=== PATIENT | female | born 1960 | race Caucasian/White ===

== ENCOUNTER 2018-05-26 10:43 | Observation (INO) | payer BC ==
[2018-05-26] MEDS ORDERED: NS 0.9% 1000 ML** 1,000 ML IV ONE (10:45)
[2018-05-26] MEDS ORDERED: Alteplase* 100 MG VIAL ONE (10:51)
--- NOTE | 2018-05-26 10:52 | ED ---
Neurological HPI - HPI Summary HPI Summary: CODE CASTLE overhead at 10:39 This pt is a 57 y/o female presenting to [facility] via EMS for sudden onset of headache and right sided numbness today. EMS reports the pt woke up with a headache at 07:00 today. Pt went to work as usual and at 08:20 she noted visual disturbance while looking at her monitor. EMS states her headache became worse and pt took 2 Aleve. Pt feels like she has "novocaine" on the right side of her face. Additionally pt states she feels like she can't concentrate and is nauseous. EMS notes pt's right sided facial droop currently is more noticeable than when EMS was on scene. EMS denies noticing slurred speech. Pt is not anticoagulated. She only takes levothyroxine. Denies any PMHx. Denies tobacco or alcohol use. - History of Current Complaint Stated Complaint: CODE ARAIZA Time Seen by Provider: 05/26/18 10:45 Hx Obtained From: Patient, EMS Onset/Duration: Sudden Onset, Started hours ago, Still Present Timing: Sudden Onset Neurological Deficit Location: Facial Character: Numbness/Tingling - numbness on right side of face, Visual Changes, Other: - headache Aggravating: Nothing Alleviating: Nothing Associated Signs and Symptoms: Positive: Visual Changes, Headache, Numbness - right side of face, Nausea/Vomiting - Nausea. Negative: Fever - Allergy/Home Medications Allergies/Adverse Reactions: Allergies Allergy/AdvReac Type Severity Reaction Status Date / Time wheat Allergy Nausea Verified 05/26/18 16:19 Home Medications: Home Medications Levothyroxine TAB* [Synthroid TAB*] 25 mcg PO DAILY 05/26/18 [History Confirmed 05/26/18] PMH/Surg Hx/FS Hx/Imm Hx Endocrine/Hematology History: Reports: Hx Thyroid Disease Denies: Hx Diabetes Cardiovascular History: Denies: Hx Hypertension Musculoskeletal History: Reports: Hx Scoliosis - Cancer History Hx Chemotherapy: No Hx Radiation Therapy: No - Surgical History Surgery Procedure, Year, and Place: hysterectomy-1987 breast red. 1988 - Family History Known Family History: Negative: Cardiac Disease - Social History Alcohol Use: None Substance Use Type: Reports: None Smoking Status (MU): Never Smoked Tobacco Review of Systems Negative: Fever Eyes: Other - POS: visual disturbance Positive: Nausea Neurological: Other - POS: unable to concentrate, right sided facial droop Positive: Headache, Numbness - on R sided face. Negative: Slurred Speech All Other Systems Reviewed And Are Negative: Yes Physical Exam - Summary Physical Exam Summary: Appearance: Well-appearing, Well-nourished, lying in bed comfortably Skin: Warm, dry, no obvious rash Eyes: sclera anicteric, no conjunctival pallor ENT: mucous membranes moist, pharynx appears normal Neck: Supple, nontender Respiratory: Clear to auscultation, no signs of respiratory distress Cardiovascular: Normal S1, S2. No murmurs. Normal distal pulses in tibial and radial bilaterally. Abdomen: Soft, nontender, normal active bowel sounds present Musculoskeletal: Normal, Strength/ROM Intact, Motor function in all 4 extremities is normal and symmetric. There is no rigidity or tremor noted. Neurological: A&Ox3, awake and alert, mentation is normal, speech is fluent and appropriate, Level of consciousness nml. The patient is alert and oriented. Cranial nerves with right sided facial palsy of a central type. Motor: weakness of right arm and right leg. She is able to lift both right arm and right leg off the stretcher but there's drift, but neither right arm or right leg fall to the bed. There's asymmetry to light touch sensation on face, arm and leg, with the right being diminished. No visual field loss. No hemineglect. NIH score is 6. Psychiatric: affect is normal, does not appear anxious or depressed Triage Information Reviewed: Yes Vital Signs On Initial Exam: Initial Vitals Temp Pulse Resp BP Pulse Ox 98.3 F 72 16 146/78 95 05/26/18 10:53 05/26/18 10:53 05/26/18 10:53 05/26/18 10:53 05/26/18 10:53 Vital Signs Reviewed: Yes - [place] Coma Scale Best Eye Response: 4 - Spontaneous Best Motor Response: 6 - Obeys Commands Best Verbal Response: 5 - Oriented Coma Scale Total: 15 Diagnostics - Laboratory Result Diagrams: 05/27/18 06:45 05/27/18 06:45 Lab Statement: Any lab studies that have been ordered have been reviewed, and results considered in the medical decision making process. - Radiology Chest XR Radiology Interpretation Completed By: Radiologist Summary of Radiographic Findings: IMPRESSION: No active cardiopulmonary disease. Dr. Crocker has reviewed this report. - CT Brain CT CT Interpretation Completed By: Radiologist Summary of CT Findings: IMPRESSION: No acute intracranial pathology. Preliminary findings were discussed with Dr. Crocker in the Emergency Department at approximately 10:58 AM on 2018. CTA Head/Neck CT Interpretation Completed By: Radiologist Summary of CT Findings: IMPRESSION: 1. No internal carotid artery stenosis by nascet criteria. 2. No aneurysm, vascular malformation, occlusion, or stenosis of the visualized intracranial circulation. Dr. Crocker has reviewed this report. - EKG 11:04 Cardiac Rate: NL - at 76 bpm EKG Rhythm: Sinus Rhythm Summary of EKG Findings: NSR at 76 BPM, P waves, QRS complex, and T waves are within normal limits, T waves and intervals are normal, no ischemic changes. This is a normal EKG Re-Evaluation - Re-Evaluation First Eval Re-Evaluation Time: 10:58 Comment: Dr. Rasmussen, neurologist, at bedside. Course/Dx - Course Course Of Treatment: Maugi Castle called at 10:39. Dr. Crocker to pt at door at 10: 44. Pt to CT at 10:45. Dr. Crocker orders brain CT at 10:46. Pt returned from CT at 10:52. CT reading over the phone provided by Dr. Howard at 10:57. Dr. Rasmussen , neurologist, in to see pt at 10:58. Pt is TPA candidate and TPA ordered at 11: 06. CTA ordered at 11:06. TPA administered at 11:08. Assessment/Plan: Pt is a 57 y/o female presenting to [facility] via EMS for sudden onset of headache and right sided numbness today. EMS reports the pt woke up with a headache at 07:00 today. Magui castle called at 10:39. NIH score is 6. GCS is 15. Brain CT is negative for an intracranial pathology. Dr. Rasmussen reports pt is candidate for TPA. CTA head/neck ordered. TPA was administered. CTA shows 1. No internal carotid artery stenosis by nascet criteria. 2. No aneurysm, vascular malformation, occlusion, or stenosis of the visualized intracranial circulation. Discussed case with Dr. Cabrales, hospitalist, who accepted pt for admission. - Diagnoses Provider Diagnoses: CVA (cerebral vascular accident) During the Visit The Following Alert/Code Occurred: Magui Castle - at 10:39 - Physician Notifications Discussed Care Of Patient With: José Manuel Cabrales - hospitalist Time Discussed With Above Provider: 12:38 Instructed by Provider To: Admit As Inpatient - Critical Care Time Critical Care Time: 30-74 min - Acute stroke symptoms, neurology consult, TPA administration, frequent neurologic rechecks. Discharge - Sign-Out/Discharge Documenting (check all that apply): Patient Departure [place] [facility] [place] Received Moderate/Deep Sedation with Procedure: No - Discharge Plan Condition: Stable Disposition: ADMITTED TO [facility] - Billing Disposition and Condition Condition: STABLE Disposition: Admitted to [facility] - Attestation Statements Document Initiated by Scribe: Yes Documenting Scribe: Lindsey Ellis Provider For Whom Scribe is Documenting (Include Credential): Solomon Crocker MD Scribe Attestation: Lindsey Lima scrkirstened for Solomon Crocker MD on 05/27/18 at 1235. Scribe Documentation Reviewed: Yes Provider Attestation: The documentation as recorded by the Lindsey daly accurately reflects the service I personally performed and the decisions made by me, Solomon Crocker MD Status of Scribe Document: Viewed
[2018-05-26] MEDS ORDERED: Alteplase* 100 MG VIAL IV ONE ×2 (11:06)
[2018-05-26] MEDS ORDERED: PROCHLORPERAZINE INJ 5 MG/ML 2 ML VIAL IV ONE (11:16)
[2018-05-26 11:23] LABS: ABS Basophils 0.1 10^3/ul (0-0.2); ABS Eosinophils 0.2 10^3/ul (0-0.6); ABS Lymphocytes 1.9 10^3/ul (1.0-4.8); ABS Monocytes 0.4 10^3/ul (0-0.8); ABS Neutrophils 3.1 10^3/ul (1.5-7.7); ABS Nucleated RBC 0 10^3/ul; Eosinophil % 2.7 %; Hematocrit 42 % (35-47); Lymphocyte % 33.6 %; Mean Corpuscular HGB Conc 34 g/dl (31-36); Mean Corpuscular Hemoglobin 31 pg (27-31); Mean Corpuscular Volume 91 fL (80-97); Nucleated Red Blood Cells % 0; Platelet Count 238 10^3/ul (150-450); Red Blood Count 4.58 10^6/ul (4.00-5.40); Red Cell Distribution Width 14 % (10.5-15); White Blood Count 5.6 10^3/ul (3.5-10.8)
[2018-05-26] MEDS ORDERED: Iodixanol* (CONTRAST) 320 MG/ML 100 ML SDV IV ONE (11:23)
[2018-05-26 11:31] LABS: INR 0.93 (0.77-1.02)
[2018-05-26 11:42] LABS: ALT 28 U/L (7-52); Albumin 4.5 g/dL (3.2-5.2); Albumin/Globulin Ratio 1.6 (1-3); Alkaline Phosphatase 93 U/L (34-104); BUN/Creatinine Ratio 19.7 (8-20); Blood Urea Nitrogen 13 mg/dL (6-24); CO2 Carbon Dioxide 25 mmol/L (22-32); Calcium 9.5 mg/dL (8.6-10.3); Chloride 106 mmol/L (101-111); Cholesterol 230 mg/dL; EGFR African American 111.7 (>60); EGFR Non-African American 92.3 (>60); Globulin 2.9 g/dL (2-4); Glucose 93 mg/dL (70-100); HDL Cholesterol 56.8 mg/dL; LDL Cholesterol 152 mg/dL; Sodium 139 mmol/L (135-145); Total Protein 7.4 g/dL (6.4-8.9); Triglycerides 104 mg/dL
[2018-05-26 11:44] LABS: Anion Gap 8 mmol/L (2-11)
[2018-05-26 12:37] LABS: Urine Appearance Clear; Urine Bacteria Absent (Absent); Urine Bilirubin Negative (Negative); Urine Blood 1+ (Negative); Urine Color Straw; Urine Glucose Negative (Negative); Urine Ketones Negative (Negative); Urine Nitrite Negative (Negative); Urine Protein Negative (Negative); Urine Red Blood Cell Trace(0-2/hpf) (Absent); Urine Specific Gravity 1.009 (1.010-1.030); Urine Squamous Epithelial Cell Present (Absent); Urine Urobilinogen Negative (Negative); Urine White Blood Cell Trace(0-5/hpf) (Absent)
--- NOTE | 2018-05-26 12:39 | CONS ---
NEUROLOGY CONSULTATION NOTE: DATE OF CONSULT: 05/26/18 REFERRING PHYSICIAN: Dr. Crocker. LOCATION: She is in the emergency room. CHIEF COMPLAINT: Numbness, visual loss, headache. HISTORY OF PRESENT ILLNESS: Kelsey Kendall is a 57-year-old right-handed woman who awoke this morning with a bad headache. She normally does not get headaches. She went to work as she was under some time pressure for work that needed to be done. While at work, she developed loss of vision in her right eye only. It seemed like wavy lines were obscuring her vision. She subsequently noticed numbness of the right face, including the right side of the mouth and gums and then the right hand and right foot. She ultimately presented to the hospital. A anshul cabrera was called and I was asked to see her. At my evaluation 4 hours after 7 a.m. when she awoke with the headache and less than 4 hours after onset of the visual and sensory symptoms, she reported decreased vision out of the right eye and numbness of the right face and hand. She felt like her right leg and arm were weak. Dr. Crocker advised her when he first evaluated her, she had central pattern right facial weakness as well as right arm and leg weakness. She denies any prior history of migraine headaches. There is no history of transient ischemic attacks, strokes, diabetes, hypertension, or anticoagulant use. There is no recent history of trauma or surgery. There is no history of bleeding disorders. PAST MEDICAL HISTORY: Her past medical history is notable for gastritis, hiatal hernia. She has a history of hypothyroidism and endometriosis. MEDICATIONS AT HOME: Consist of thyroid replacement. ALLERGIES: According to computer records, she does not have any drug allergies. REVIEW OF SYSTEMS: Negative for recent abdominal pain, trauma, bleeding, prior history of headaches. She is a nonsmoker, does not drink alcohol. She works in a [employer] office. PHYSICAL EXAM: She is well nourished and well hydrated. Blood pressure is 138/ 80, heart rate in the 90s and regular, respiratory rate about 16. Going straight to the neurological exam, with initial assessment, pupils are equal at about 3 mm. Eye movements are normal. Visual jacobs are full to confrontation. Visual acuity out of the left eye seems normal to the patient and out of the right eye seems diffusely blurry. There is no hemianopia, however. Facial musculature is symmetric to my exam. Facial sensation to light touch is reported as diminished on the right side to the left to cotton, but perceptible. Speech is clear without dysarthria. On motor exam, she has antigravity strength in all limbs. She lifts the right arm up and it is tremulous, but there is no drift. With the right leg, she is able to hold it up, but only about 8 inches off the bed, but she holds it there without drift. There is no drift on the left side at all. [id number] maneuver is normal on the left, but she has an IV in her right antecubital area. Finger taps are normal in the right hand, however. Sensory exam is reported as diminished, but perceptible to light touch in the right hand relative to the left and in the right foot relative to the left. She is completely alert and oriented with fluent language. She is able to provide the date and her date. She follows commands without deficit. Her NIH stroke scale is 3 with 1 for partial hemianopia, 1 point for right leg motor, 1 point for sensory. There is no laboratory data other than her CAT scan of the brain without contrast, which was reviewed personally. This was interpreted by radiologist Dr. Howard as normal and I reviewed and I agree. IMPRESSION: Possible cerebrovascular accident. The monocular visual changes are suggestive of a migrainous phenomena, but she has no history of migraine. She does not have any contraindications to tPA and she is within the 4-1/2-hour window. I discussed the risks and benefits of tPA quoting a 6% risk of serious hemorrhage including fatal brain hemorrhage, a 20% to 30% benefit in terms of ischemic stroke outcomes. After answering questions, the patient agreed to consent to tPA infusion; tPA was started at about 4 hours and 5 minutes after awakening and somewhat under 3 hours after onset of visual and sensory symptoms. We will send her for CT angiogram next. If she has a large-vessel occlusion, I will discuss her case with the [facility]'s stroke team. If she does not have a large-vessel occlusion, we will admit her with plans for MRI scans and post tPA and possible stroke workup. I would also consider giving her intravenous magnesium if the CT angiogram is negative for possible migrainous mechanism behind her neurological symptoms and deficits. I will continue to follow her along and have discussed the case with Dr. Crocker, who is working concurrently with me. [id number]/[facility] #: [id number] JOVANNA
[2018-05-26 12:50] LABS: Potassium Redraw 3.5 mmol/L (3.5-5.0)
--- NOTE | 2018-05-26 12:50 | CONS ---
NEUROLOGY CONSULTATION: ADDENDUM: DATE OF CONSULT: 05/26/18 LOCATION: She is in the emergency room, to be admitted to the intensive care unit. REFERRING PROVIDER: Dr. Crocker. INTERVAL HISTORY: Since earlier note, Kelsey's visual symptoms have resolved. She still feels like her right side is somewhat numb. Her headache is now a dull ache. She has received tPA and the infusion was recently finished. She had a CT angiogram of the brain interpreted as normal by Dr. Howard. I reviewed the images and I agree. Her laboratory studies are back and she has a normal CBC, normal chemistry profile, although the potassium and AST were not able to be evaluated. Her cholesterol is 230 and LDL is 152 and these are nonfasting. Her glucose is 93. INR is normal at 0.93 and PTT at 20.0. Her EKG looks normal and she is in sinus rhythm. PHYSICAL EXAM: Her blood pressure remains about 140/70. Heart rate is in the 70s and appears sinus on the monitor. On repeat neurological exam, facial musculature is symmetric. Pupils are equal and respond to light from 3 down to 2.5 mm. Eye movements are normal and visual jacobs are full to confrontation. Funduscopic exam is normal bilaterally. Facial sensation is still felt to be less on the right side than the left to pin discrimination. Pin discrimination in the right arm and right leg is also felt to be less than the left side. Strength seems normal in the right arm and left arm without any drift. She has good strength in the left arm and she is able to raise the right leg up and hold it off the bed. She is alert and conversant. Memory is intact and language is fluent. IMPRESSION AND PLAN: Impression is that of a possible cerebrovascular event. Her CT angiogram does not show a large-vessel occlusion. Her lipids are not in an optimal range, although there is no evidence of atherosclerotic disease on her CT angiogram. She will probably need to be started on a statin, but I would first check a fasting lipid profile tomorrow morning. She will be admitted to the intensive care unit. I have put in orders for an MRI scan of the brain without contrast and a CT scan of the brain without contrast 24 hours after her tPA infusion. I have also ordered a transthoracic echocardiogram with a bubble study and a hemoglobin A1c. I will continue to follow her along. I have updated Kelsey and her family on the results of her studies. [id number]/[facility] #: [id number] JOVANNA
[2018-05-26] MEDS ORDERED: Ondansetron INJ* 2 MG/ML VIAL IV PRN (13:02)
[2018-05-26] MEDS ORDERED: Acetaminophen TAB* 325 MG PO PRN (13:02)
[2018-05-26 14:06] LABS: TSH (Thyroid Stimulating Horm) 1.11 mcIU/mL (0.34-5.60)
--- NOTE | 2018-05-26 14:54 | HP ---
CC: Dr. Saurabh Medellin; Dr. Eloy Rasmussen * ADMISSION HISTORY AND PHYSICAL: DATE OF ADMISSION: 05/26/18 PRIMARY CARE PROVIDER: Dr. Saurabh Medellin. MY ATTENDING WHILE IN THE HOSPITAL: Dr. José Manuel Cabrales.* (DICTATED BY DELVIN GREENBERG) CHIEF COMPLAINT: Right-sided numbness and weakness, headache. HISTORY OF PRESENT ILLNESS: Ms. Kendall is a 57-year-old female with past medical history significant only for hypothyroidism, gastritis due to hiatal hernia, who presents to the emergency department after approximately 7 a.m. on day of her admission she developed sudden onset of right-sided headache with right-sided facial numbness and right-sided weakness. The patient states she took Aleve which has not changed her symptoms, so she came to the emergency department. The patient in the emergency department had persistent symptoms with reported right-sided facial droop, right-sided headache, right-sided weakness. The patient had a CT of her head which was unremarkable, and given the patient had no contraindication to tPA, it was given. The patient had immediate relief of her headache and her vision problems improved. The patient described the changes in her vision as waviness and difficulty focusing with inability to read. The patient has not had any other recent illnesses, recent changes to her medications. The patient did not have vertigo or nausea. The patient's vital signs were within normal limits. The patient was stable in the emergency department. The patient has no previous history of AFib, but does state that she feels like her heart is pounding in her chest occasionally and recently had her Synthroid decreased due to this. The patient denies chest pain , shortness of breath, nausea, vomiting, dysuria, abdominal pain, diarrhea, or other symptoms. The patient was in her normal state of health. The patient was exposed to the flu from both her and daughter, but not contracted herself. We were asked to evaluate the patient for admission due to concern for CVA. PAST MEDICAL HISTORY: Hypothyroidism, gastritis, hiatal hernia, endometriosis. PAST SURGICAL HISTORY: EGD x2. MEDICATIONS: Levothyroxine 25 mcg p.o. daily. ALLERGIES: No known drug allergies. FAMILY HISTORY: The patient's father has diabetes, heart disease, thyroid disease, but is still alive. The patient's mother has a brain aneurysm which is being managed conservatively and no other health problems. The patient has 2 sisters who are healthy. SOCIAL HISTORY: The patient has never smoked. Drinks occasional alcohol. Has never used illicit drugs. 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 The patient is and has 2 children. The patient's surrogate decision maker will be her , [place]. REVIEW OF SYSTEMS: A 14-point review of systems was reviewed and is negative except as above in the HPI. PHYSICAL EXAMINATION GENERAL: The patient is a 57-year-old female who appears stated age, sitting comfortably in bed, in no acute distress. HEENT: Head: Normocephalic, atraumatic. Sclerae anicteric. No conjunctival injection. Nasal mucosa moist. Oral mucosa moist. No pharyngeal erythema, discharge, or exudate. NECK: Supple, nontender. No lymphadenopathy. No carotid bruits auscultated. No JVD. RESPIRATORY: Clear to auscultation bilaterally. No wheezes, rales, or rhonchi. Good air exchange bilaterally. CARDIAC: Regular rate and rhythm. No clicks, murmurs, gallops, or rubs. Pulses are 2+ in the bilateral dorsalis pedis, posterior tibialis, and radial areas. ABDOMEN: Soft, nontender, nondistended. Bowel sounds present and normoactive in all 4 quadrants. No hepatosplenomegaly. No abdominal bruits auscultated. No hepatojugular reflux. GENITOURINARY: No suprapubic or CVA tenderness. NEURO: The patient has diminished sensation to light touch, cold, and pinprick on the right side of her face. The patient has no nystagmus. Pupils are equal , round, and reactive to light. Palate elevates symmetrically. No facial asymmetry. The patient has weakness of 4-/5 on her right side in the upper and lower extremities distally and proximally. Normal sensation to light touch in the upper and lower extremities distally and proximally. Reflexes unremarkable. Babinski is downgoing bilaterally. PSYCHIATRIC: Very pleasant and cooperative. SKIN: Clean, dry, and intact. No rash. LABORATORY DATA: White blood cell count of 5.6, hemoglobin 14.0, platelet count 238. INR 0.93, aPTT 28.0. Sodium 139, potassium not processed, chloride 106, carbon dioxide 25, anion gap 8, BUN 13, creatinine 0.66, glucose 93, lactic acid 1.3, calcium 9.5. Bilirubin 0.5, AST not processed, ALT 25, alkaline phosphatase 93. Troponin I of 0.00. Total protein 7.4, albumin 4.5, globulin 2.9. Triglycerides 104, cholesterol 230, LDL cholesterol 152, HDL cholesterol 56.8. Urine shows 1+ blood, otherwise unremarkable. IMPRESSION AND PLAN: Ms. Kendall is a 57-year-old female with past medical history significant for hypothyroidism and hiatal hernia with gastritis who presents to the emergency department with sudden onset right-sided neurologic symptoms. The patient received tPA in the emergency department and will be admitted to the hospital for close observation and post-tPA care. 1. Likely cerebrovascular accident. The patient likely had a cerebrovascular accident that was thrombotic in nature for which the patient received tPA, but has residual deficits. The patient will be monitored closely in the ICU with bleeding precautions post-tPA protocol including a CT of her brain at 24 hours. The patient will have an MRI and echocardiogram. Given the patient's history overtreated hypothyroidism, we will recheck a TSH and the patient will likely need long-term cardiac monitoring. Given the patient's headache, this could also be a migraine mimic such as complicated migraine with aura; however, this is less likely given the patient's lack of history of migraine, her age and other risk factors. We will have moderate permissive hypertension. The patient has no other significant concerns. The patient will have hemoglobin A1c and repeat lipid profile drawn in the morning and will be treated with statins at that time if needed. The patient will have dual antiplatelet therapy when cleared by Neurology after bleeding concerns with tPA have diminished. 2. Hypothyroidism. Continue the patient's levothyroxine and check TSH as above. 3. DVT prophylaxis: SCDs in the setting of tPA. The patient is low risk except for a recent stroke. 4. Code status: The patient would like to be a full code. 5. FEN: The patient will have a heart-healthy diet without caffeine. The patient does not need fluids at this time. 6. Disposition: The patient is admitted to the ICU. TIME SPENT: Approximately 60 minutes was spent on the admission of this patient , 30 of which was spent [id number] with the patient obtaining history and physical and discussing treatment plan. Plan was discussed with my attending, Dr. José Manuel Cabrales, and he is in agreement. DELVIN GREENBERG [id number]/[facility] #: [id number] JOVANNA
[2018-05-26] MEDS ORDERED: Perflutren Lipid Microsphere* 3 ML VIAL ONE (15:45)
[2018-05-26] MEDS: Pantoprazole TAB * 40 MG TAB PO SCH (15:58)
[2018-05-26] MEDS: Levothyroxine TAB* 25 MCG TAB PO SCH (15:59)
--- NOTE | 2018-05-26 17:27 | ECHO ---
Patient: ALMAS ABREU [facility] Rec#: [id number] : 1960 Date: 05/26/2018 Age: 57y Height: 160 cm / 63.0 in Weight: 79.1 kg / 174.3 lbs Sex: F BSA: 1.8 Room#: ICU 2 Admit Date#: 05/26/2018 Type: Inpatient Referring: Eloy Rasmussen MD Reading: Desire Brown MD Concrete Batcher: Rupa Galeas RN RDCS CC: Saurabh Medellin MD Transthoracic Echocardiogram Indication: CVA S/P tPA BP: 144/91 HR: 63 Rhythm: NSR with PACs Findings History: Thyroid disease, scoliosis, hiatal hernia Technical Comments: The study is technically limited due to poor acoustic windows. Left Ventricle: The left ventricular chamber size is normal. Septal wall hypertrophy is observed. at 1.1 cm. Global left ventricular wall motion and contractility are within normal limits. There is normal left ventricular systolic function. The estimated ejection fraction is 55-60%. Normal left ventricular diastolic filling is observed. Left Atrium: The left atrial chamber size is normal. Right Ventricle: The right ventricular cavity size is normal. The right ventricular global systolic function is low normal. Right Atrium: The right atrial cavity size is normal. The bubble study is negative. A patent foramen ovale is not demonstrated with color Doppler and agitated contrast. Aortic Valve: The aortic valve is trileaflet. The aortic valve leaflets are mildly thickened. There is no evidence of aortic regurgitation. There is no evidence of aortic stenosis. Mitral Valve: The mitral valve leaflets are mildly thickened. There is no evidence of mitral regurgitation. There is no evidence of mitral stenosis. Tricuspid Valve: The tricuspid valve structure is not well visualized. There is trace tricuspid regurgitation. Unable to estimate the right ventricular systolic pressure. There is no tricuspid stenosis. Pulmonic Valve: The pulmonic valve structure is not well visualized. There is a trace pulmonic regurgitation. There is no pulmonic stenosis. Pericardium: There is no significant pericardial effusion. A pericardial fat pad is visualized. Aorta: The ascending aorta is not well visualized. There is no dilatation of the aortic arch. There is no dilation of the aortic root. Pulmonary Artery: The main pulmonary artery is not well visualized. Venous: The inferior vena cava appears normal in size. There is a greater than 50% respiratory change in the inferior vena cava dimension. Contrast: Normal saline was used as contrast for the bubble study. Images 1-3. To enhance endocardial border definition, a total of 3 ml of diluted Definity was given IV. Conclusions The left ventricular chamber size is normal. Global left ventricular wall motion and contractility are within normal limits. The estimated ejection fraction is 55-60%. The right ventricular global systolic function is low normal. The bubble study is negative, no evidence of intracardiac shunting based on bubble study, 2D and color Doppler evaluation. No prior study to compare. Measurements Name Value Normal Range RVIDd (AP) 2D 2.6 cm (0.9 - 2.6) RVDdMajor (2D) 2.9 cm (2.2 - 4.4) RAd ISD 4CH 4.4 cm (3.4 - 4.9) RA (A4C)W 3.9 cm (2.9 - 4.6) IVSd (2D) 1.1 cm (0.6 - 1) LVPWd (2D) 1 cm (0.6 - 1) LVIDd (2D) 4.1 cm (3.6 - 5.4) LVIDs (2D) 2.9 cm - LV FS (2D) 29 % (25 - 45) Aortic Annulus 2.1 cm (1.4 - 2.6) Ao root diameter (2D) 3.2 cm (2.1 - 3.5) Aortic arch 2.8 cm (1.8 - 3.4) LA dimension (AP) 2D 2.9 cm (2.3 - 3.8) LAd ISD 4CH 4.5 cm (2.9 - 5.3) LA ISD 4CH W 3.9 cm (2.5 - 4.5) Name Value Normal Range LA ESV BP (A/L) index 22.4 ml/m2 - Name Value Normal Range MV E-wave Vmax 0.79 m/sec - MV deceleration time 246 msec - MV A-wave Vmax 0.76 m/sec - MV E:A ratio 1 ratio - LV septal e' Vmax 0.08 m/sec - LV lateral e' Vmax 0.11 m/sec - LV E:e' septal ratio 9.9 ratio - LV E:e' lateral ratio 7.2 ratio - Name Value Normal Range AV Vmax 1.38 m/sec - AV VTI 31.3 cm - AV peak gradient 8 mmHg - AV mean gradient 4 mmHg - LVOT Vmax 0.98 m/sec - LVOT VTI 23.7 cm - LVOT peak gradient 4 mmHg - LVOT mean gradient 2 mmHg - CAL Vmax 0.56 m/sec - Name Value Normal Range IVC diameter 1.6 cm - Name Value Normal Range PV Vmax 0.86 m/sec -
[2018-05-27] MEDS: Levothyroxine TAB* 25 MCG TAB PO SCH (06:35)
[2018-05-27 06:59] LABS: ABS Basophils 0 10^3/ul (0-0.2); ABS Eosinophils 0.2 10^3/ul (0-0.6); ABS Lymphocytes 1.5 10^3/ul (1.0-4.8); ABS Monocytes 0.4 10^3/ul (0-0.8); ABS Neutrophils 2.9 10^3/ul (1.5-7.7); ABS Nucleated RBC 0 10^3/ul; Hematocrit 39 % (35-47); Hemoglobin 12.9 g/dl (12.0-16.0); Lymphocyte % 29.2 %; Mean Corpuscular HGB Conc 33 g/dl (31-36); Mean Corpuscular Hemoglobin 30 pg (27-31); Mean Corpuscular Volume 91 fL (80-97); Mean Platelet Volume 7.9 fL (7.4-10.4); Nucleated Red Blood Cells % 0.1; Platelet Count 209 10^3/ul (150-450); Red Blood Count 4.25 10^6/ul (4.00-5.40); Red Cell Distribution Width 14 % (10.5-15)
[2018-05-27 07:16] LABS: BUN/Creatinine Ratio 15.6 (8-20); Calcium 9.1 mg/dL (8.6-10.3); EGFR African American 115.3 (>60); EGFR Non-African American 95.3 (>60); HDL Cholesterol 46.3 mg/dL; Magnesium 2.2 mg/dL (1.9-2.7)
[2018-05-27] MEDS: Pantoprazole TAB * 40 MG TAB PO SCH (10:10)
--- NOTE | 2018-05-27 10:28 | PN ---
Subjective Date of Service: 05/27/18 Interval History: Mild headache she attributes to caffeine withdrawal. No other neuro sx's. Vision back to [place]. Objective Active Medications: Acetaminophen (Tylenol Tab*) 650 mg PO Q6H PRN PRN Reason: FEVER/PAIN Levothyroxine Sodium (Synthroid Tab*) 25 mcg PO DAILY@0600 [facility] Last Admin: 05/27/18 06:35 Dose: 25 mcg Ondansetron HCl (Zofran Inj*) 4 mg IV Q6H PRN PRN Reason: NAUSEA Pantoprazole Sodium (Protonix Tab*) 40 mg PO DAILY [facility] Last Admin: 05/27/18 10:10 Dose: 40 mg Vital Signs - 8 hr 05/27/18 05/27/18 05/27/18 02:30 03:00 03:01 Temperature Pulse Rate 57 60 67 Respiratory 12 17 17 Rate Blood Pressure 101/61 123/66 (mmHg) O2 Sat by Pulse 93 93 93 Oximetry 05/27/18 05/27/18 05/27/18 03:21 03:30 04:00 Temperature 97.3 F Pulse Rate 59 52 Respiratory 12 16 Rate Blood Pressure 110/62 104/67 (mmHg) O2 Sat by Pulse 94 95 Oximetry 05/27/18 05/27/18 05/27/18 04:01 04:30 05:00 Temperature Pulse Rate 54 60 65 Respiratory 13 13 13 Rate Blood Pressure 98/55 126/71 (mmHg) O2 Sat by Pulse 94 93 94 Oximetry 05/27/18 05/27/18 05/27/18 05:01 05:30 06:00 Temperature Pulse Rate 60 55 52 Respiratory 16 15 14 Rate Blood Pressure 116/67 106/60 (mmHg) O2 Sat by Pulse 93 94 95 Oximetry 05/27/18 05/27/18 05/27/18 06:30 07:00 07:30 Temperature Pulse Rate 66 61 54 Respiratory 14 14 15 Rate Blood Pressure 114/67 103/63 107/62 (mmHg) O2 Sat by Pulse 94 94 95 Oximetry 05/27/18 05/27/18 05/27/18 08:00 08:25 09:00 Temperature 98.0 F Pulse Rate 74 80 Respiratory 23 14 Rate Blood Pressure 127/69 120/77 (mmHg) O2 Sat by Pulse 94 93 Oximetry 05/27/18 09:01 Temperature Pulse Rate 75 Respiratory 20 Rate Blood Pressure (mmHg) O2 Sat by Pulse 93 Oximetry Oxygen Devices in Use Now: None Appearance: Alert, sitting up in ICU bed. In good spirits. Looks comfortable. Eyes: No Scleral Icterus Extremities: No Edema, No Clubbing, Cyanosis, - Skin: No Rash or Ulcers, No Nodules or Sclerosis, - Neurological: Alert and Oriented x 3, NL Sensation - No tremor. Result Diagrams: 05/27/18 06:45 05/27/18 06:45 Microbiology and Other Data: Microbiology 05/26/18 14:10 Nasal Screen MRSA (PCR) - Final Nasal Mrsa Not Detected Assess/Plan/Problems-Billing Assessment: - Patient Problems (1) Migraine, hemiplegic Current Visit: Yes Status: Acute Code(s): G43.409 - HEMIPLEGIC MIGRAINE, NOT INTRACTABLE, W/O STATUS MIGRAINOSUS SNOMED Code(s): 81525736 Comment: Note her sister and a GM had migraines. MRI, CTA neg. Fup and meds per Dr. Rasmussen. (2) Received IV tissue plasminogen activator within last 24 hours Current Visit: Yes Status: Acute Code(s): ZHA6033 - SNOMED Code(s): 255942136 Comment: Repeat CT brain pending.
--- NOTE | 2018-05-27 13:26 | PN ---
Progress Note - Progress Note Date of Service: 05/27/18 Note: Time spent on discharge including exam of pt, discussion with pt, family, nurse , CM, Dr. Rasmussen, review of EMR and preparation of discharge documents is 45 minutes.
--- NOTE | 2018-05-27 14:28 | DS ---
CC: Dr. Garcia; Dr. Rasmussen DISCHARGE SUMMARY: DATE OF ADMISSION: DATE OF DISCHARGE: 05/27/18 HISTORY OF PRESENT ILLNESS/HOSPITAL COURSE: This 58-year-old woman came here the day before her 58th birthday with a headache that had started about 7 in the morning. She had right-sided facial numbness and right-sided weakness of her arm and leg, right-sided headache, and monocular blurriness of her right eye. She has tried covering her right eye and her left eye and determined that her right eye was very blurry, but not her left eye. She was seen in the ER. She had a CT of the head in the ER. She was given tPA after consultation with Dr. Rasmussen. She was followed in the intensive care unit. Her symptoms resolved about an hour after the tPA and about 4 hours after the onset of symptoms. She had no further symptoms in the hospital, perhaps some mild caffeine withdrawal headache on the day of discharge. Neurologically , she is completely intact. She had an MRI of the brain and a CTA of the head and neck, which were unremarkable. Her TSH and hemoglobin A1c were both normal. LDL was in the 130s, slightly elevated. The clinical presentation and imaging findings were most suggestive of a migraine equivalent syndrome, late onset, and the patient does have a family history of migraine headaches in 2 family members. The patient will be put on aspirin 81 mg daily for this and follow up with Dr. Rasmussen. FINAL DIAGNOSES: 1. Complex migraine. 2. Hypothyroidism. DISCHARGE MEDICATIONS: 1. Aspirin 81 mg daily. 2. Acetaminophen 650 mg every 6 hours p.r.n. 3. Pantoprazole 40 mg daily. 4. Levothyroxine 25 mcg daily. DISPOSITION ON DISCHARGE: Discharged home. Fup with Dr. Rasmussen. CONDITION ON DISCHARGE: Improved. [id number]/[facility] #: [id number] JOVANNA
[2018-05-27 15:18] VITALS: BP 114/61
== END 2018-05-27 15:19 | disposition home or self-care (01) ==
LOC: ED 10:43 → INTOOBSV 13:02 → ICU 13:02
PROVIDERS: ADMIT Internal Medicine; ATTEND Internal Medicine
DX: G43.409 Hemiplegic migraine, not intractable, without status migrainosus (principal); R20.0 Anesthesia of skin; R11.2 Nausea with vomiting, unspecified; E03.9 Hypothyroidism, unspecified; Z79.82 Long term (current) use of aspirin; R53.1 Weakness; F15.93 Other stimulant use, unspecified with withdrawal
CPT/HCPCS: 36415; 70450; 70496; 70498; 70551; 71045; 80048; 80053; 80061; 81003; 81015; 82607; 83036; 83605; 83735; 84443; 84484; 85025; 85610; 85730; 87086; 87641; 93005; 93306; 96374; 96375; 96376; 99285; A9270-GY; C8929; G0378; J0780; J2997; Q9967